=== PATIENT | female | born 1970 | race Hispanic/Latino ===

== ENCOUNTER 2016-07-30 12:28 | Observation (INO) | payer OTHER ==
[~2016-07-30] VITALS: Ht 157.5 cm; Wt 145.4 kg
[2016-07-30] VITALS (9 sets, daily range): BP systolic 109–138; BP diastolic 46–78; PULSE 76–104; RESP 14–20; O2SAT 95–100
[~2016-07-30 12:28] MED LIST: NOMED; ONDA8TAB7 PO
--- NOTE | 2016-07-30 12:32 | ED.REPORT ---
HPI-General Illness Date of Service Jul 30, 2016 ED Provider: Dr. 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 At 1045 this morning, the patient was walking and suddenly began to feel dizzy, spinning, diaphoretic, SOB and her heart began to race. She felt like she was going to fall over. She describes the chest pain as "heavy" and has never experienced symptoms like this before. She denies fever, vomiting , cough, or any recent illness. Nursing Notes Stated Complaint: LIGHT HEADED/SCT Nursing Notes Reviewed: Yes Allergies: Coded Allergies: No Known Allergies (Verified , 08/23/06) Scheduled PRN Ondansetron ODT (Zofran ODT) 8 Mg Tablet 8 MG PO Q6H PRN PRN For Nausea Miscellaneous Medications No Historical Medication (No Historical Medication) Ea General Time Seen by MD: 12:32 Chief Complaint Other (heart palpitations) Hx Obtained From: Patient, EMS Arrived By: Ambulance Sudden in Onset?: Yes Onset Occurred: 1 - 4 hours ago Symptom Duration: Since onset Severity: Current: No pain currently Recent Healthcare: Recent doctor visit Similar Sx Previous: No Past Medical History Past Medical History Benign pancreatic tumor Pneumonia Uterine fibroids Past Surgical History Cholecysctectomy Family History noncontributory Smoking History Never Smoker Social History Alcohol Use: Denies alcohol use Drug Use: Denies drug use Other Social History: Good social support, , Local resident Ambulatory Status Independent Review of Systems Full Review of Systems Constitutional: Denies: Chills, Fever Respiratory: Reports: Shortness of breath, Denies: Non-productive cough Cardiovascular: Reports: Palpitations (SVT) GI: Denies: Diarrhea, Vomiting Skin: Reports Diaphoresis Neurologic: Reports: Dizziness, Lightheaded, Weakness Complete sys rev & neg: except as marked. Physical Exam Vital Signs Vital Signs Date Time Temp Pulse Resp B/P Pulse Ox O2 Delivery O2 Flow Rate FiO2 07/30/16 14:38 82 15 125/67 100 Room Air 07/30/16 13:34 95 19 138/73 100 Room Air 07/30/16 12:28 36.8 104 14 131/76 98 Room Air Initial VS: Reviewed, Vital signs abnormal General/Constitutional: Awake, Alert Head / Eyes: Normocephalic, PERRL, EOMI Respiratory / Chest: Atraumatic, Breath sounds NL, Breath sounds = bilat, No respiratory distress Cardiovascular: Heart rate NL, Regular rhythm, Heart sounds NL Abdomen: Atraumatic, Soft, Non-tender Upper Extremities Upper Extremity / MS: Atraumatic, Inspection NL, No deformity Lower Extremity / Pelvis / MS: Full range of motion, No deformity slight increased swelling on right side Skin: Atraumatic, No rash, Warm, Dry Neurologic: Oriented X3, Speech NL, No motor deficits, No sensory deficits, CN II - XII intact Interpretation & Diagnostics Lab Results Interpretation Result Diagram: 07/30/16 1245 07/30/16 1245 Test 07/30/16 12:45 07/30/16 13:52 White Blood Count 8.6th/mm3 (3.8-10.1) Red Blood Count 4.73mil/mm3 (3.90-5.20) Hemoglobin 12.0g/dL (12.0-15.6) Hematocrit 38.6% (35.0-46.0) Mean Corpuscular Volume 81.6fL (81-100) Mean Corpuscular Hemoglobin 25.4pg (27.0-35.0) Mean Corpuscular Hemoglobin Concent 31.1% (32.0-37.0) Red Cell Distribution Width 16.7% (12.3-15.4) Platelet Count 342bil/L (150-400) Neutrophils (%) (Auto) 74.9% (40-74) Lymphocytes (%) (Auto) 18.3% (14-46) Monocytes (%) (Auto) 5.3% (4-12) Eosinophils (%) (Auto) 0.7% (0-5) Basophils (%) (Auto) 0.2% (0-3) Sodium Level 138mEq/L (134-144) Potassium Level 4.2mEq/L (3.5-5.2) Chloride Level 101mEq/L (97-108) Carbon Dioxide Level 18mmol/L (18-29) Blood Urea Nitrogen 16mg/dL (6-24) Creatinine 0.69mg/dL (0.57-1.00) Estimat Glomerular Filtration Rate 131mL/min (>59) Glucose Level 128mg/dL (60-99) Calcium Level 9.2mg/dL (8.5-10.1) Magnesium Level 1.6mg/dL (1.6-2.6) Total Bilirubin 0.3mg/dL (0.0-1.2) Aspartate Amino Transf (AST/SGOT) 25U/L (0-50) Alanine Aminotransferase (ALT/SGPT) 16U/L (0-32) Alkaline Phosphatase 94U/L (25-150) Troponin T 0.018ug/L (0.0-0.011) Total Protein 7.7g/dL (6.4-8.4) Albumin 3.9g/dL (3.4-5.0) Hold Luevano Top Tube Received (Received) Hold Urine Received (Received) ECG Interpretation Time: 12:38 Interpreted by: ED physician Normal ECG Interpretation: No acute ischemic changes, Normal axis, Normal intervals Rhythm / Conduction: Tachycardia (rate 103) X-Ray Chest Interpretation Chest Xray Interpretation: IMPRESSION: Possible basilar atelectasis without definite pneumonia. No overt heart failure. Dictated by: Miguel A Nicholson M.D. on 07/30/2016 at 12:03 Approved by: Miguel A Nicholson M.D. on 07/30/2016 at 12:04 View: Portable Interpretation / Wet Read by: Interpret - Radiologist US Focused Lower Ext Venous IMPRESSION: No deep venous thrombosis identified within the right lower extremity. Dictated by: Justin Alonso RRA Interpreted: Paris Anderson MD on 07/30/2016 at 14:05 Transcribed by: ROME on 07/30/2016 at 14:05 Exam Performed by: Radiologist Exam Type: Diagnostic Exam Interpreted by: Radiologist Re-Eval/Medical Decision Med Decision/Clinical Course The patient had sudden onset of tachycardia with associated chest pressure. She went to urgent care and upon arrival the ambulance was given some adenosine and then had a run of ventricular tachycardia. Upon arrival here she is without chest pain or other symptoms other than feeling generally weak. The patient essentially had a stress test with an indeterminant troponin. The patient is morbidly obese which is the primary risk factor for ischemia. There is also concern for possible DVT with some increased swelling to her right lower extremity, her ultrasound is negative for DVT. Dr Narayanan accepted the patient for admission at 1500. Time of Eval: 14:24 Re-Evaluation/Progress Note: Pt rechecked. Informed pt of diagnosis and need for admission. Pt understands and agrees with plan. Counseled Regarding: Diagnosis, Lab results, Need for admission Discharge & Departure Primary Impression: SVT (supraventricular tachycardia) Additional Impressions: Ventricular tachyarrhythmia Chest pain Chest pain type: unspecified Qualified Code: R07.9 - Chest pain, unspecified Disposition: ADMITTED TO HOSPITAL Discharge Condition All VS Reviewed: Yes Condition: Stable Referrals: Alberto Craft MD (PCP) Scribe Attestation Portion of this note were transcribed by Anika Ramos. I, Dr. Kelly , personally performed the history, physical exam, and medical decision-making: I reviewed and confirmed the accuracy for the information in the transcribed note. Signed by: ryley Jean-Baptiste, 07/30/16 1500 copies to: Alberto Craft MD, Jena M MD Jul 30, 2016 12:32 Anika Ramos Jul 30, 2016 12:42
[2016-07-30] MEDS ORDERED: 0.9% Sodium Chloride 1,000 ML IV ONE (12:45)
[2016-07-30 12:51] LABS: BASOPHILS % (AUTO) 0.2 % (0-3); EOSINOPHILS % (AUTO) 0.7 % (0-5); MONOCYTES % (AUTO) 5.3 % (4-12); Mean Corpuscular Hemoglobin 25.4 pg (27.0-35.0); Mean Corpuscular Volume 81.6 fL (81-100); NEUTROPHILS % (AUTO) 74.9 % (40-74); Platelet Count 342 bil/L (150-400)
--- NOTE | 2016-07-30 13:06 | DRSVH ---
PROCEDURE: X-RAY CHEST ONE VIEW, PORTABLE ([id number]) INDICATIONS: CHEST PAIN TECHNIQUE: One view of the chest was acquired. COMPARISON: [facility], CT, CT ANGIO CHEST PE, 02/13/2016, 21:20. [facility] l, CR, XR CHEST 1VW (PORTABLE), 02/13/2016, 18:25. FINDINGS: Surgical changes and devices: None. Lungs and pleura: There are low lung volumes. There may be mild basilar atelectasis. No focal conso lidation, effusion, or pneumothorax is appreciated. Mediastinum: Mediastinal contours appear normal. Heart size is normal. Bones and chest wall: No suspicious bony lesions. Overlying soft tissues appear unremarkable. IMPRESSION: Possible basilar atelectasis without definite pneumonia. No overt heart failure. Dictated by: Miguel A Nicholson M.D. on 07/30/2016 at 12:03 Approved by: Miguel A Nicholson M.D. on 07/30/2016 at 12:04
[2016-07-30 13:34] LABS: Magnesium 1.6 mg/dL (1.6-2.6)
[2016-07-30 13:46] LABS: TROPONIN T 0.018 ug/L (0.0-0.011)
--- NOTE | 2016-07-30 14:05 | DRSVH ---
PROCEDURE: US VEINOUS LEG DUPLEX UNILATERAL, RIGHT INDICATIONS: RLE swelling TECHNIQUE: Real-time imaging, as well as color and pulse Doppler interrogation, were performed of the lower extr emity deep veins from the inguinal ligament to the popliteal fossa. COMPARISON: None. FINDINGS: The deep veins are normally compressible, and free of intraluminal thrombus. Color and pu lse Doppler demonstrate normal phasic intraluminal flow. There is normal augmentation response to di stal compression maneuver. IMPRESSION: No deep venous thrombosis identified within the right lower extremity. Dictated by: Justin Alonso [facility] Interpreted: Paris Anderson MD on 07/30/2016 at 14:05 Transcribed by: ROME on 07/30/2016 at 14:05 Approved by: Paris Anderson M.D. on 07/31/2016 at 12:10
[2016-07-30] MEDS ORDERED: Ondansetron 2 mg/mL 2 mL Inj IVPUSH PRN (15:15)
[2016-07-30] MEDS ORDERED: Polyethylene Glycol (PEG) 17 Gm Powder PO PRN (15:15)
[2016-07-30] MEDS ORDERED: Alum-Mag Hydrox-Simeth 30 mL Suspension PO PRN (15:15)
--- NOTE | 2016-07-30 16:15 | NUR ---
ADMIT Report received from Rosa Maria Rodriguez RN in ED. Pt brought onto floor at 1615 via gurney. Pt able to transfer with minimal weakness, steady on feet. SBA for safety. Pt denies pain and SOB. Pt oriented to unit, room, and call light. Plan of care updated on board and explained to pt. Admission interventions completed, MED REC reviewed, all belongings recorded with waiver signed. IV Fluids started and tele placed - SR 82. Plan for NPO at midnight for stress test.
--- NOTE | 2016-07-30 16:18 | PCM.HPMED ---
Subjective Date of Service Jul 30, 2016 Primary Provider: Admitting Physician: Chuck Narayanan MD Primary Care Physician: Alberto Craft MD Attending Physician: Chuck Narayanan MD Chief Complaint: Tachycardia, chest pain History of Present Illness: 45-year-old female presents to emergency room with chest pressure and palpitations and a feeling of vertigo at 10 AM lasted about an hour and a half and has passed. When I am seeing her she is asking about going home. She denies fevers, chills, cough, sputum, dysuria, myalgias, dyspnea on exertion, chest pain on exertion or any other systemic symptoms. The episode of walking/ suddenly feeling dizzy and spinning and diaphoresis and shortness of breath is as described lasted about an hour and a half and has resolved and she is asking about going home. She is working up something to do with her thyroid with her primary care provider. Review of Systems: Gen.: No fevers chills weight loss weight gain Eyes: no visual disturbances or blurring vision HEENT: No nose/throat drainage, no pain in ears or throat, no hearing loss Lymph: No lymph nodes noted Cardiac: No orthopnea, PND, pedal edema or dyspnea on exertion + chest pain, tachycardia Pulmonary: no cough, wheezing or bringing up of sputum GI: No anorexia nausea vomiting blood or black in the stool : no dysuria hematuria urinary frequency or decrease in urine output Musculoskeletal: Joint swelling no joint pain no new muscle aches or back pain Neuro: No syncope, seizures no loss of consciousness no new focal weakness, numbness or tingling + Dizziness, spinning, feeling unsteady on her feet Psychiatric: New new anxiety insomnia or depression Endocrine: No new heat or cold intolerances polyuria or polydipsia Hematology: No lymphadenopathy or easy bleeding or bruising noted skin: No new rashes, stasis dermatitis + diaphoresis Allergies Coded Allergies: No Known Allergies (Verified , 08/23/06) Home Medications No medications PMH Benign pancreatic tumor Pneumonia Uterine fibroids Past Surgical History Cholecysctectomy Family History noncontributory Smoking History Never Smoker Social History Alcohol Use: Denies alcohol use Drug Use: Denies drug use Other Social History: Good social support, , Local resident Ambulatory Status Independent Social History Hx Alcohol Use: No Hx Substance Use: No Hx Tobacco Use: No Smoking Status: Never Smoker Exam Vital Signs Vital Sign - Last Date Time Temp Pulse Resp B/P Pulse Ox O2 Delivery O2 Flow Rate FiO2 07/30/16 15:49 81 20 109/46 100 Room Air 07/30/16 12:28 36.8 Exam Gen.- A+ O 3 no apparent distress. Morbidly obese female lying in bed Eyes- open conjunctiva clear, pupils equal nonicteric Mouth- oral mucosa moist, no exudate ENT- ears normal, nose normal Neck- supple/trach midline CVS- RRR no murmur or gallop Lungs CTA GI- NABS/NT soft, generous pannus Musc- moving 4 no obvious deformity Bilaterally legs are swollen secondary to body habitus and BMI of almost 60, but the right leg is more enlarged than the left Neuro- cranial nerves II through XII intact to gross examination, nonfocal Skin- warm and dry, no rashes/lesions/wounds noted Psych- pleasant and appropriate, Lab and Diagnostics Result Diagram: 07/30/16 1245 07/30/16 1245 X-Rays, CTs and MRIs X-RAY CHEST ONE VIEW, PORT: Miguel A Nicholson M.D. on 07/30/2016 at 12:03 IMPRESSION: Possible basilar atelectasis without definite pneumonia. No overt heart failure. Dictated by: Miguel A Nicholson M.D. on 07/30/2016 at 12:03 VEINOUS LEG DUPLEX UNILATERAL, RIGHT: Justin NEWBY Interpreted: Paris Anderson MD on 07/30/2016 at 14:05 IMPRESSION: No deep venous thrombosis identified within the right lower extremity. Dictated by: Justin NEWBY Interpreted: Paris Anderson MD on 07/30/2016 at 14:05 Transcribed by: ROME on 07/30/2016 at 14:05 12-lead ECG Sinus tachycardia with a rate of 103, QTC admitted to be 462 ms concurrently reviewed by Oracio 07/[address] segment changes Assessment & Plan 45-year-old morbidly obese female presents to the emergency room 07/30 with chest pressure and palpitations and a feeling of dizziness that has now passed. If her next enzyme and her TSH is normal and she is able to ambulate and no arrhythmias are noted on telemetry I am inclined to let her go home if she desires. I have told her that if there is any question between her her family of whether she should go home now she should stay. I will be happy to accommodate either way. My only other concerns either were missing an arrhythmia or possibly in the UTI which we are checking on. Stat troponin, UA, TSH with T4 have been ordered. #Chest pain/palpitations- resolved. EKG normal, first enzyme normal. -At this time I have ordered serial enzymes and Myoview for the morning that she can walk on the treadmill -I am also inclined to send this patient home if she stands up and walks around is asymptomatic to have her workup done as an outpatient and she and her primary care provider C -Patient is being placed on telemetry. I have suggested that a Holter monitor might benefit her if this occurs #Dizziness/vertigo- resolved -Check orthostatics, ambulate -If ongoing physical therapy consultation is placed #Right lower extremity edema greater than left-patient had a scratch and sepsis that resulted in January 2016 and that like his been chronically more swollen than the other. -Doppler of the lower externally shows no evidence of DVT. #?Thyroid?-TSH and free T4 have been ordered stat now was initially going to be in the morning. #Morbid obesity #Prophylaxis-DVT with SCDs and enoxaparin but that may not be doable she may need heparin given her mass, GI not indicated #Disposition-full code from home Chuck Narayanan MD Jul 30, 2016 16:18
--- NOTE | 2016-07-30 16:51 | PCM.DIMED ---
Discharge Instructions Date of Service Jul 30, 2016 Dates of Hospitalization Jul 30, 2016 at 15:44 Discharge Diagnosis Discharge Diagnosis Chest pain, dizziness/vertigo Test Results Test Results Her bit anemic hemoglobin of 9.9 after hydration. Cardiac stress test was normal. No arrhythmias were noted on the telemetry while you were here. Diet Discharge Diet: No restrictions Activity Discharge Activity: No restrictions Call your provider Call your provider for: Shortness of breath, Chest pain, Other (dizziness) Patient Instructions Follow-up plan As previously with primary care provider. Call her if that is not in the next week to 10 days. If they are having some ongoing symptoms he may need a Holter monitor which is a heart monitor. Can also discuss whether stress test is indicated. Follow-up Provider: Alberto Craft MD Follow-up with PCP in: Other (call for follow-up) Chuck Narayanan MD Jul 30, 2016 16:51
--- NOTE | 2016-07-30 16:52 | PCM.DC.MED ---
Discharge Summary Date of Service Jul 30, 2016 Dates of Hospitalization Date of Hospital Admission Jul 30, 2016 at 15:44 Date of Discharge: Jul 31, 2016 Providers: Admitting Physician: Chuck Narayanan MD Primary Care Physician: Alberto Craft MD Attending Physician: Chuck Narayanan MD Diagnosis at Time of Discharge Diagnosis at Time of Discharge Chest pain, dizziness/vertigo Consultations None Procedures XRay, CTs & MRIs X-RAY CHEST ONE VIEW, PORT: Miguel A Nicholson M.D. on 07/30/2016 at 12:03 IMPRESSION: Possible basilar atelectasis without definite pneumonia. No overt heart failure. Dictated by: Miguel A Nicholson M.D. on 07/30/2016 at 12:03 US VEINOUS LEG DUPLEX UNILATERAL, RIGHT: Justin NEWBY Interpreted: Paris Anderson MD on 07/30/2016 at 14:05 IMPRESSION: No deep venous thrombosis identified within the right lower extremity. Dictated by: Justin NEWBY Interpreted: Paris Anderson MD on 07/30/2016 at 14:05 Transcribed by: ROME on 07/30/2016 at 14:05 ECG 12 Lead Sinus tachycardia with a rate of 103, QTC admitted to be 462 ms concurrently reviewed by Oracio 07/[address] segment changes Other Diagnostics CARDIAC STRESS: Paris Anderson M.D. on 07/31/2016 at 17:18 1. Normal myocardial perfusion images. 2. Normal left ventricular volume and systolic function. 3. No chest pain or diagnostic EKG changes for ischemia. Approved by: Paris Anderson M.D. on 07/31/2016 at 17:18 Brief History 45-year-old female presents to emergency room with chest pressure and palpitations and a feeling of vertigo at 10 AM lasted about an hour and a half and has passed. When I am seeing her she is asking about going home. She denies fevers, chills, cough, sputum, dysuria, myalgias, dyspnea on exertion, chest pain on exertion or any other systemic symptoms. The episode of walking/ suddenly feeling dizzy and spinning and diaphoresis and shortness of breath is as described lasted about an hour and a half and has resolved and she is asking about going home. She is working up something to do with her thyroid with her primary care provider. Hospital Course 45-year-old morbidly obese female presents to the emergency room 07/30 with chest pressure and palpitations and a feeling of dizziness that has now passed. 07/31 had an unremarkable stay nothing on telemetry blood pressure remained stable heart rate normalized. Myoview was normal. She passed physical therapy and did not have any further events. #Anemia-dilutional would benefit from follow patient still having periods. May need iron studies as well. #Chest pain/palpitations- resolved. EKG normal, first enzyme normal. -enzymes normalized Myoview normal -No abnormalities reported on telemetry #Dizziness/vertigo- resolved -Not orthostatic - physical therapy consultation reveals the patient's baseline low function does not need ongoing physical therapy #Right lower extremity edema greater than left-patient had a scratch and sepsis that resulted in January 2016 and that like his been chronically more swollen than the other. -Doppler of the lower externally shows no evidence of DVT. #?Thyroid?-TSH is slightly elevated, T4 normal 07/31 #Morbid obesity #Slight hyperglycemia-consider checking A1c she might benefit from metformin. #Prophylaxis-DVT with SCDs and enoxaparin but that may not be doable she may need heparin given her mass, GI not indicated #Disposition-full code from home Exam Vital Signs (Last) Date Time Temp Pulse Resp B/P Pulse Ox O2 Delivery O2 Flow Rate FiO2 07/30/16 16:44 78 07/30/16 16:18 36.4 20 116/78 99 Room Air Exam Gen.- A+ O 3 no apparent distress. Morbidly obese female lying in bed Eyes- open conjunctiva clear, pupils equal nonicteric Mouth- oral mucosa moist, no exudate ENT- ears normal, nose normal Neck- supple/trach midline CVS- RRR no murmur or gallop Lungs CTA GI- NABS/NT soft, generous pannus Musc- moving 4 no obvious deformity Bilaterally legs are swollen secondary to body habitus and BMI of almost 60, but the right leg is more enlarged than the left Neuro- cranial nerves II through XII intact to gross examination, nonfocal Skin- warm and dry, no rashes/lesions/wounds noted Psych- pleasant and appropriate, Test 07/30/16 12:45 07/30/16 13:52 07/30/16 16:44 White Blood Count 8.6th/mm3 (3.8-10.1) Red Blood Count 4.73mil/mm3 (3.90-5.20) Hemoglobin 12.0g/dL (12.0-15.6) Hematocrit 38.6% (35.0-46.0) Mean Corpuscular Volume 81.6fL (81-100) Mean Corpuscular Hemoglobin 25.4pg (27.0-35.0) Mean Corpuscular Hemoglobin Concent 31.1% (32.0-37.0) Red Cell Distribution Width 16.7% (12.3-15.4) Platelet Count 342bil/L (150-400) Neutrophils (%) (Auto) 74.9% (40-74) Lymphocytes (%) (Auto) 18.3% (14-46) Monocytes (%) (Auto) 5.3% (4-12) Eosinophils (%) (Auto) 0.7% (0-5) Basophils (%) (Auto) 0.2% (0-3) Sodium Level 138mEq/L (134-144) Potassium Level 4.2mEq/L (3.5-5.2) Chloride Level 101mEq/L (97-108) Carbon Dioxide Level 18mmol/L (18-29) Blood Urea Nitrogen 16mg/dL (6-24) Creatinine 0.69mg/dL (0.57-1.00) Estimat Glomerular Filtration Rate 131mL/min (>59) Glucose Level 128mg/dL (60-99) Calcium Level 9.2mg/dL (8.5-10.1) Magnesium Level 1.6mg/dL (1.6-2.6) Total Bilirubin 0.3mg/dL (0.0-1.2) Aspartate Amino Transf (AST/SGOT) 25U/L (0-50) Alanine Aminotransferase (ALT/SGPT) 16U/L (0-32) Alkaline Phosphatase 94U/L (25-150) Troponin T 0.018ug/L (0.0-0.011) Total Protein 7.7g/dL (6.4-8.4) Albumin 3.9g/dL (3.4-5.0) Hold Luevano Top Tube Received (Received) Hold Urine Received (Received) Discharge Medications Discharge Medications Aspirin (Aspirin) 81 Mg Tablet 81 MG PO DAILY (Reported) Followup Plan Disposition: To home Follow-up plan As previously with primary care provider. Call her if that is not in the next week to 10 days. If they are having some ongoing symptoms he may need a Holter monitor which is a heart monitor. Can also discuss whether stress test is indicated. Discharge Diet: No restrictions Discharge Activity: No restrictions Follow-up Provider: Alberto Craft MD Follow-up with PCP in: Other (call for follow-up) Time spent Greater than 30 minutes Attending Statement The patient has ongoing symptoms she might benefit from a Holter monitor for 48- 72 hours. She does need another CBC to follow up on her hemoglobin and she may need iron studies if she is persistently anemic. Her thyroid function was a little bit off I did not see the need to pursue that at this time she might benefit from a little Levoxyl and she might benefit from a little metformin I leave this to her primary care provider discussed I mentioned it at the time of discharge. copies to: Alberto Craft MD, Andris E MD Jul 30, 2016 16:52
[2016-07-30 16:56] LABS: APPEARANCE,URINE CLEAR (CLEAR,HAZY); COLOR,URINE STRAW (YELLOW); OCCULT BLOOD,URINE NEGATIVE (NEGATIVE); UROBILINOGEN,URINE NORMAL (NORMAL)
[2016-07-30] MEDS ORDERED: ASPI-973 PO (17:17)
[2016-07-30] MEDS: 0.9% Sodium Chloride 1,000 ML IV SCH (17:36)
[2016-07-31 03:10] LABS: BASOPHILS % (AUTO) 0.2 % (0-3); EOSINOPHILS % (AUTO) 2.2 % (0-5); MONOCYTES % (AUTO) 8.6 % (4-12); Mean Corpuscular Hemoglobin 25.4 pg (27.0-35.0); Mean Corpuscular Volume 81.5 fL (81-100); NEUTROPHILS % (AUTO) 53.9 % (40-74); Platelet Count 331 bil/L (150-400)
[2016-07-31 03:30] VITALS: BP 106/66; PULSE 72; RESP 16; O2SAT 95
[2016-07-31] MEDS: 0.9% Sodium Chloride 1,000 ML IV SCH (03:52)
[2016-07-31 09:03] VITALS: BP 119/69; PULSE 78; RESP 18; O2SAT 96
--- NOTE | 2016-07-31 11:18 | NUR ---
Evaluation completed. Please go to "Notes" then click on "Assessments and Notes" (bottom left corner of screen). Then select appropriate discipline tab on top of screen.
[2016-07-31 11:28] VITALS: PULSE 71
--- NOTE | 2016-07-31 11:39 | NUR ---
Social Work-screening/readiness for discharge: Data:EMR Reviewed. Pt is a 45 y/o female who was admitted on 07/30/16 for SVT per H&P. Pt's insurance is and PCP is Alberto Craft MD. EMR reviewed. SW met with pt and brother at bedside, SW role explained. Pt's readmission score is 1. SW met with pt to discuss discharge planning, SW role explained. Pt is alert and oriented x3. Pt resides at home with her where she remains independent with ADLs. Pt is independent and does not use any DME. Pt has cleared pt for home no needs. SW discussed DPOA/ advanced directive, pt confirmed she has not completed this,SW provided pt with a copy. Pt's family to provide transport home at discharge. No discharge needs identified. SW will continue to follow if needs arise. Assessment:Pt who is independent at baseline. Plan:Pt to discharge home today via POV. No discharge needs identified. SW will continue to follow if needs arise. KIESHA Yung
[2016-07-31 13:11] VITALS: BP 114/73; PULSE 69; RESP 20; O2SAT 94
--- NOTE | 2016-07-31 15:34 | NUR ---
Stress test patient is having stress test and not back to [facility].
[2016-07-31 16:45] VITALS: BP 142/74; PULSE 93; RESP 20; O2SAT 97
--- NOTE | 2016-07-31 17:16 | NUR ---
Stress test Patient back from stress test and tolerating PO fluids and meals with out difficulty. Stable vital signs. Denies any chest pain or discomfort.
--- NOTE | 2016-07-31 17:20 | DRSVH ---
PROCEDURE: 1 DAY PHARMACOLOGICAL STRESS TEST Rest and pharmacological stress myocardial perfusion SPECT with gated imaging and ejection fraction RADIOPHARMACEUTICAL: 16.5 mCi Tc-99m tetrafosmin IV at rest and 47.5 mCi Tc-99m tetrafosmin IV at pea k effect of pharmacological stress. A [id number] was performed. INDICATIONS: 45 year-old woman with chest pain and SVT. The patient has obesity as risk factor for co ronary artery disease. Evaluate myocardial ischemia. TECHNIQUE: Radiopharmaceutical was injected at peak stress test, and also at rest. SPECT images wer e obtained. SPECT myocardial perfusion images were displayed in short axis, horizontal long axis, an d vertical long axis views. Gated images were reviewed using [employer] software. COMPARISON: None. CARDIAC STRESS: A pharmacologic stress test was performed under the supervision of an attending staff, using an infus ion of [employer]ac[employer]. Hemodynamic data: There is normal blood pressure and heart rate response to pharmacologic stress. Symptoms: The patient denied anginal chest pain. Aminophylline: 100 mg IV EKG: No diagnostic changes of ischemia; no ectopy. FINDINGS: Raw data: There is good myocardial uptake of radiotracer. No significant motion artifacts. Left ventricle function: Gated images demonstrate normal left ventricular wall thickening. No segme ntal wall motion abnormalities. No transient ischemic dilation. Left ventricle resting end diastoli c volume is normal. Left ventricle stress ejection fraction is 69%; normal range is above 45%. Myocardial perfusion: There is normal distribution of activity in the right and left ventricular eduardo cardium. No fixed or reversible perfusion defects. IMPRESSION: 1. Normal myocardial perfusion images. 2. Normal left ventricular volume and systolic function. 3. No chest pain or diagnostic EKG changes for ischemia. PQRS ATTESTATIONS: Measure 322 - Is this imaging test primarily performed on a low-risk surgery patient for preoperative evaluation within 30 days preceding their low-risk non-cardiac surgery? Low-risk surgery is defined as cardiac or myocardial infarction less than 1%, including (but not limited to) endoscopic pr ocedures, superficial procedures, cataract surgery, and excisional breast surgery: Answer: No Measure 323 - Is this imaging test performed primarily for the monitoring of an asymptomatic patient who had percutaneous coronary intervention on the visit date or within 2 years of the visit date? An swer: No Measure 324 - Is this imaging test performed primarily for the initial detection and risk assessment on an asymptomatic, low coronary heart disease patient? Low CHD risk definition = clinicians should consider the maximum number of available patient factors used to estimate risk based on [place] (A TP III criteria), typically age, gender, diabetes, smoking status, and use of blood pressure medicati on, and integrate age appropriate estimates for missing elements, such as LDL or standard blood press ure. Answer: No Dictated by: Paris Anderson M.D. on 07/31/2016 at 17:13 Approved by: Paris Anderson M.D. on 07/31/2016 at 17:18
--- NOTE | 2016-07-31 17:58 | NUR ---
Discharge Dr Woods at bed side and speaking to patient r/t discharge. Reviewed discharge paper work and discharge instructions. patient is aware that there are no discharge medications and agrees. patient understood and Signed discharge paper work Discontinued right arm IV with out difficulty. Denies pain or discomfort prior to discharge. Patient left unit approx 1800 with spouse and preferred walking.
== END 2016-07-31 18:13 | disposition home or self-care (01) ==
LOC: SED 12:28 → MPC 15:44
PROVIDERS: ADMIT Hospitalist; ATTEND Hospitalist
DX: R07.9 Chest pain, unspecified (principal); R42 Dizziness and giddiness; D64.9 Anemia, unspecified; I47.1 Supraventricular tachycardia; R60.1 Generalized edema; E66.01 Morbid (severe) obesity due to excess calories
CPT/HCPCS: 36415; 71010; 78452; 80048; 80053; 80061; 81000; 83735; 84439; 84443; 84484; 85025; 93005; 93017; 93971; 94799; 96360; 97161; 99285; A9502; G0378; J0280; J1650; J2785; J7030